=== PATIENT | male | born 1965 | race Caucasian/White ===

== ENCOUNTER → 2016-10-20 | Outpatient (CLI) | payer BC ==
[~2016-10-20] MED LIST: TYLENOL WITH C1 EACH PO
== END | disposition disaster alternative care site (69) ==
LOC: GRAD 11:14
DX: R10.9 Unspecified abdominal pain (principal); N20.2 Calculus of kidney with calculus of ureter; N42.89 Other specified disorders of prostate

== ENCOUNTER → 2016-11-02 | Day surgery (SDC) | payer BC ==
[~2016-11-02] VITALS: Ht 175.3 cm; Wt 109.1 kg
--- NOTE | ~2016-11-02 | OR ---
PATIENT'S NAME: J[facility]IN [facility] AGE: 51 Y [address] ROOM: [place] [address] LOCATION: [facility] [place] ADMIT DATE: 11/02/2016 OR/Procedure Report DISCHARGE DATE: FAMILY PHYSICIAN: Chandu Weaver MD ATTENDING PHYSICIAN: Antione Burden SURGEON: Antione Burden MD ARCADE TECHNICIAN: DATE OF PROCEDURE: 11/02/2016 PREOPERATIVE DIAGNOSIS: Left nephrolithiasis. POSTOPERATIVE DIAGNOSIS: Left nephrolithiasis. PROCEDURE PERFORMED: Cystoscopy, left stent placement, left ESWL. ANESTHESIA: General. COMPLICATIONS: None. INDICATION FOR PROCEDURE: The patient is a 51-year-old male with a 4 mm proximal left ureter stone with obstruction, also a 5 mm left lower pole stone. DESCRIPTION OF PROCEDURE: After informed consent was obtained, the patient was taken to the operating room. A general anesthetic was applied. He was placed in a dorsal lithotomy position. The groin area was prepped and draped in normal sterile fashion. Cystoscope was introduced into the urethra and bladder without difficulty. The left ureteral orifice was identified and cannulated with a guidewire up into the renal pelvis. Next, a 4.8 multi- length ureteral stent was passed over the guidewire up into the renal pelvis. Radiograph imaging showed good position of the stent. The patient was then placed on the lithotripsy table in supine position. The renal pelvis was explored and only a 5 mm stone was visualized. Fluoroscopy was then used to target the stone. He received shocks starting at 16 kilovolts and gradually increased to 24 kilovolts. The patient received a total of 2800 shocks with good fragmentation of the stone. The patient tolerated his procedure well and was transferred to recovery room in good condition. ANTIONE BURDEN MD PATIENT'S NAME: J[facility]IN [facility] AGE: 51 Y [address] ROOM: [place] [address] LOCATION: [facility] [place] ADMIT DATE: 11/02/2016 OR/Procedure Report DISCHARGE DATE: FAMILY PHYSICIAN: Chandu Weaver MD ATTENDING PHYSICIAN: Antione Burden/modl /[id number] CC: Chandu Weaver MD d: 11/02/16 2208 t: 11/16/16 1454, OPERATIVE SUMMARY
== END | disposition disaster alternative care site (69) ==
LOC: GPOC 10-27 13:00 → GSDC 11:37
PROC: 0T778DZ Dilation of Left Ureter with Intraluminal Device, Via Natural or Artificial Opening Endoscopic (ICD-10-PCS; principal; 2016-11-02)
PROC: 0TF7XZZ Fragmentation in Left Ureter, External Approach (ICD-10-PCS; 2016-11-02)
DX: N20.0 Calculus of kidney (principal); N13.5 Crossing vessel and stricture of ureter without hydronephrosis; J45.909 Unspecified asthma, uncomplicated; Z98.890 Other specified postprocedural states
CPT/HCPCS: C1769; C2617; J1956; J2001; J7120

== ENCOUNTER → 2016-11-03 | Outpatient (CLI) | payer BC | END | disposition disaster alternative care site (69) | LOC: GRAD 07:13 | DX: Q79.1 Other congenital malformations of diaphragm (principal); K31.89 Other diseases of stomach and duodenum; E65 Localized adiposity; K44.9 Diaphragmatic hernia without obstruction or gangrene ==

== ENCOUNTER → 2016-11-16 | Outpatient (CLI) | payer BC | END | disposition disaster alternative care site (69) | LOC: GRAD 09:13 | DX: Z09 Encounter for follow-up examination after completed treatment for conditions other than malignant neoplasm (principal); Z87.442 Personal history of urinary calculi; Z96.0 Presence of urogenital implants ==